=== PATIENT | female | born 1950 | race Caucasian/White ===

== ENCOUNTER → 2021-10-24 | Outpatient (CLI) | payer OTHER | END | disposition home or self-care (01) | LOC: RAH 10:57 | DX: I73.9 Peripheral vascular disease, unspecified (principal); G63 Polyneuropathy in diseases classified elsewhere | CPT/HCPCS: 93925 ==

== ENCOUNTER → 2022-08-07 | Outpatient (CLI) | payer OTHER | END | disposition home or self-care (01) | LOC: SHCH 12:35 | PROVIDERS: ATTEND Internal Medicine Cardiovascular Disease | DX: I87.2 Venous insufficiency (chronic) (peripheral) (principal) | CPT/HCPCS: 93970 ==

== ENCOUNTER → 2023-08-15 | Outpatient (CLI) | payer OTHER | END | disposition home or self-care (01) | LOC: RAH 11:51 | PROVIDERS: ATTEND Internal Medicine | DX: K31.89 Other diseases of stomach and duodenum (principal); M47.815 Spondylosis without myelopathy or radiculopathy, thoracolumbar region; K59.00 Constipation, unspecified | CPT/HCPCS: 74018 ==

== ENCOUNTER → 2023-09-19 | Outpatient (CLI) | payer OTHER | END | disposition home or self-care (01) | LOC: RAH 11:37 | PROVIDERS: ATTEND Internal Medicine | DX: R39.15 Urgency of urination (principal); R10.30 Lower abdominal pain, unspecified | CPT/HCPCS: 76830 ==